=== PATIENT | female | born 2000 | race Caucasian/White ===

== ENCOUNTER 2020-03-29 11:59 | Emergency (ER) | payer BC, OTHER, SELFPAY ==
[2020-03-29 12:11] VITALS: BP 159/86; PULSE 91; RESP 16; TEMP 36.2; O2SAT 100
--- NOTE | 2020-03-29 12:12 | ED.GENADULT ---
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 Patient states that she did not have fever with her illness nor any acute abdominal pain, just cramping, states that she did not have any alteration in her taste or in her smell. Patient states that she has been able to eat and drink fluids without difficulty since Monday pm and wishes to return to work today and needs note to return. MD complaint: illness on Monday Onset (ago): day(s) (occurred on Monday now resolved) Location: abdomen Radiation: non-radiation Severity: mild Severity scale (1-10): 3 Quality: other (cramping) Pain Consistency: now resolved Relieving factors: none Exacerbating factors: none Associated symptoms: loss of appetite and nausea/vomiting Treatments prior to arrival: none Related Data Home Medications Medication Instructions Recorded Confirmed doxycycline monohydrate 50 mg BID 03/29/20 03/29/20 norgestimate-ethinyl estradiol 1 tablet DAILY 03/29/20 03/29/20 [Estarylla] topiramate 20 mg DAILY 03/29/20 03/29/20 Allergies Allergy/AdvReac Type Severity Reaction Status Date / Time No Known Allergies Allergy Verified 03/29/20 12:03 Review of Systems Review of Systems: Narrative: CONSTITUTIONAL: Denies fever, chills, or sweats. EYES: Denies visual changes, redness, or discharge. ENT: Denies rhinorrhea, congestion, sore throat, or otalgia. CARDIOVASCULAR: Denies chest pain, palpitations, or edema. RESPIRATORY: Denies cough or dyspnea. GASTROINTESTINAL: Denies any acute abdominal pain,reports resolved nausea, vomiting, or diarrhea. GENITOURINARY: Denies dysuria or hematuria. SKIN: Denies rash or itching. MUSCULOSKELETAL: Denies back pain, joint pain, or myalgia. NEUROLOGIC: Denies headache, numbness, or weakness. PSYCHIATRIC: Denies anxiety or depression. All systems reviewed & are unremarkable except as noted in HPI and below PMFSH Past Medical History Medical History (Updated 03/29/20 @ 13:00 by Roshni Baker NP) Acne Fracture of left tibia Fracture of left upper limb Fracture of right clavicle Migraines Social History Social History (Updated 03/29/20 @ 13:00 by Roshni Baker NP) Smoking status: Never smoker Living arrangements: with family Gender identity (if verbalized by the patient): Female Comments At time of signature, agree with nursing past medical, surgical, social history. There is no relevant family history pertinent to the presenting complaint Exam Narrative: Exam Narrative: GENERAL: Well-appearing, well-nourished, and in no acute distress. HEAD: Normocephalic, atraumatic. EYES: PERRLA and EOMI. ENT: Nares clear, no rhinorrhea or epistaxis. Mucous membranes moist. NECK: Supple.no lymphadenopathy CHEST: Clear to auscultation. No respiratory distress.SAO2 100% on room air HEART: Regular rate and rhythm. No murmur heard. Normal peripheral pulses. ABDOMEN: Soft, nontender to palpation, nondistended, normal active bowel sounds, denies any diarrhea or vomiting since Monday pm EXTREMITIES: Normal range of motion. No edema. SKIN: Warm, dry, no rash. NEURO: No focal deficits. Alert and oriented x3. Medical Decision Making Differential Diagnosis Differential Diagnosis: gastroenteritis, food poisoning, nausea, vomiting, and diarrhea now resolved, viral illness Medical Records Medical records reviewed: Yes I reviewed the patient's medical records. Critical Care Time Critical Care Time Critical Care Time: No Discharge Plan Discharge Clinical Impression: Gastroente
== END 2020-03-29 12:35 | disposition home or self-care (01) ==
PROVIDERS: Emergency Provider Registered Nurse; PCP Pediatrics
DX: K52.9 Noninfective gastroenteritis and colitis, unspecified (principal)
CPT/HCPCS: 99211; G0463

== ENCOUNTER → 2021-08-25 02:33 | Outpatient (CLI) | payer OTHER, SELFPAY ==
[2021-08-25 20:49] LABS: SARS-CoV-2 RNA PCR Positive
== END ==
PROVIDERS: PCP Physician Assistant; Visit Provider Physician Assistant
DX: U07.1 COVID-19 (principal)
CPT/HCPCS: C9803; U0003; U0005